=== PATIENT | female | born 1970 | race Caucasian/White ===

== ENCOUNTER 2016-10-31 05:36 | Observation (INO) | payer OTHER ==
[~2016-10-31] VITALS: Ht 167.6 cm; Wt 72.6 kg
--- NOTE | ~2016-10-31 | OR ---
ADMIT: 10/31/2016 RM/LOC: [facility] MR#: [id number] [address] [address] [facility] N[facility] [address] [place] [address] Operative/Delivery Room Report SEX: F AGE: 46 : 1970 SURGERY DATE: 10/31/2016 SURGEON: Shani Tracy MD PROCEDURE: 1. Total laparoscopic hysterectomy with bilateral salpingectomy. 2. Cystoscopy. TRAIN OPERATIONS SUPERVISOR: Feli Gardner MD. PREOPERATIVE DIAGNOSES: 1. Menorrhagia. 2. Uterine leiomyoma. POSTOPERATIVE DIAGNOSES: 1. Menorrhagia. 2. Uterine leiomyoma. FINDINGS: 1. Markedly enlarged uterus with multiple leiomyoma. 2. Normal-appearing tubes and right ovary. 3. Left ovarian cyst drained of clear fluid. ESTIMATED BLOOD LOSS: 100 mL. ANESTHESIA: General. COMPLICATIONS: None. INDICATIONS FOR PROCEDURE: The patient is a 46-year-old female who had had a history of increasing problems with menorrhagia. The patient had an ultrasound performed, which showed uterine leiomyoma with an exophytic mass measuring up to 6 cm. The patient initially started oral contraceptive pills for control of menorrhagia, but continued to have irregular bleeding and desired definitive surgical management. The risks, benefits, and alternatives of surgery discussed, and the patient desired total laparoscopic hysterectomy with bilateral salpingectomy with possible oophorectomy. DESCRIPTION OF PROCEDURE: The patient was taken to the operating room where general anesthesia was obtained without difficulty. The patient was placed in the dorsal lithotomy position in [facility], and prepped and draped in the usual sterile fashion. A catheter was placed prior to surgery. Attention was first turned to the patient's vagina. The cervix was visualized with the breakaway speculum. The anterior lip of the cervix was grasped with a single- tooth tenaculum. The uterus was sounded to 12 cm. The large VCare device was then placed into the uterus and the cup was tightened down around the cervix without difficulty. All other instruments were then removed from the patient's vagina. ADMIT: 10/31/2016 RM/LOC: [facility] MR#: [id number] [address] [address] NIVIA WARE [address] [place] [address] Operative/Delivery Room Report SEX: F AGE: 46 : 1970 Gloves were changed and attention was turned to the patient's abdomen. A 5-mm infraumbilical incision was made with a scalpel after local infiltration of 0.25% Marcaine. The Veress needle was inserted into this incision and the patient's abdomen was insufflated to a patient pressure of 15 mmHg using CO2 gas. Good gas flow and low patient opening pressure were noted with insufflation. When the abdomen was insufflated, 5 mm trocar was then placed into this incision. Two additional ports were placed in the left and right lower quadrants. An 11 mm port was placed in the right lower quadrant and a 5 mm port in the left lower quadrant. At this point, inspection of the pelvis revealed a markedly enlarged uterus with several leiomyoma including an exophytic subserosal leiomyoma approximately 6 cm in diameter and another at the fundus of the uterus. The patient's right tube and ovary appeared normal. The left tube appeared normal and the left ovary appeared to have a cyst. On manipulation of the ovary, the cyst did rupture and clear fluid was noted. The cyst was then completely drained. The ureters bilaterally were identified. At this point, attention was turned to the patient's right side. The right tube was identified and followed out to the fimbriated end. The mesosalpinx was sequentially coagulated and transected using the Thunderbeat device. The round ligament was then reached and was coagulated and transected using the Thunderbeat as well. The anterior leaf of the broad ligament was then taken down using the Thunderbeat as well as the posterior leaf of the broad ligament. At this point, the uterine vessels were able to be identified and were coagulated several times and then transected. Attention was then turned to the patient's left side, and this side was more difficult for visualization due to position of the leiomyoma. The left tube was able to be identified and followed out to the fimbriated end. The left mesosalpinx was sequentially coagulated and transected using the Thunderbeat device. The left round ligament was then coagulated and transected as well. The anterior leaf of the broad ligament was taken down meeting the previous incision in the midline. The posterior leaf of the broad ligament was then taken down as well. The uterine vessels on this side were then able to be identified by skeletonizing the vessels and were coagulated and transected. At this point, the tissue overlying the VCare cup was thinned out using the Thunderbeat device. The vaginal mucosa was then dissected away from the cervix using the Thunderbeat to cut around the VCare in a circumferential fashion. At this point, the uterus was able to be completely transected from the vagina. The cervix was able to be delivered through the vagina and the remainder of the uterus and tubes were delivered through the vagina as well without difficulty. At this point, gloves were changed and attention was then again turned to the patient's abdomen. The vaginal cuff was closed in a series of interrupted stitches of 0 Vicryl using the Endo Stitch device. Good hemostasis of the vaginal cuff was then noted. All other areas of pelvis ADMIT: 10/31/2016 RM/LOC: [facility] MR#: [id number] [address] [place] [id number] NIVIA WARE [address] [place] [address] Operative/Delivery Room Report SEX: F AGE: 46 : 1970 appeared hemostatic. The appendix appeared normal as did the liver. After noting excellent hemostasis, the patient's 11 mm fascial incision was closed using the Alok-Grant device with a stitch of 0 Vicryl to close the fascia. The CO2 gas was removed from the patient's abdomen and the other ports were removed under direct visualization. The skin incisions were closed with subcuticular 3-0 Vicryl. At this point, the patient's catheter was removed and cystoscopy was performed. Cystoscopy revealed a normal-appearing bladder without evidence of lesions. Bilateral ureteral jets were noted as well. At this point, all instruments removed from the patient's vagina. The Aguilar was left out as well. The patient tolerated the procedure well. All sponge and needle counts were correct. The patient went to recovery in stable condition. Shani Tracy MD/ shilo JOB #: [id number] CC: Shani Tracy, Attending Physician Blanka Wadsworth, Family Physician
[2016-11-02] MEDS ORDERED: ROSUVASTATIN CA20 MG PO (10:48)
[2016-11-02] MEDS ORDERED: ZESTRIL DPS5 MG PO (10:48)
[2016-11-02] MEDS ORDERED: AMBIEN DPS5 MG PO (10:49)
[2016-11-02] MEDS ORDERED: ZYRTEC DPS10 MG PO (10:49)
[2016-11-02] MEDS ORDERED: LASIX DPS20 MG PO (10:49)
[2016-11-02] MEDS ORDERED: NASACORT16.9 ML NS (10:50)
[2016-11-02] MEDS ORDERED: VIRTUSSIN AC L473 ML PO (10:50)
[2016-11-02] MEDS ORDERED: SINUS & ALLERG1 EACH PO (10:51)
[2016-11-02] MEDS ORDERED: GUAIFENESIN400 MG PO (10:51)
[2016-11-02] MEDS ORDERED: AMOXICILLIN875 MG PO (10:52)
[2016-11-02] MEDS ORDERED: EXCEDRIN DPS1 TAB PO (10:52)
[2016-11-02] MEDS ORDERED: MYLICON DPS80 MG PO (10:53)
[2016-11-02] MEDS ORDERED: PERCOCET 5 DPS1 TAB PO (10:53)
[2016-11-02] MEDS ORDERED: MOTRIN-DPS800 MG PO (10:53)
[2016-11-02] MEDS ORDERED: MACROBID100 MG PO (10:53)
--- NOTE | 2016-12-04 09:14 | HP ---
ADMIT: 10/31/2016 RM/LOC: [facility] MR#: [id number] [address] [address] NIVIA WARE [address] [place] [address] Pre-OP History and Physical SEX: F AGE: 46 : 1970 DATE OF SERVICE: HISTORY OF PRESENT ILLNESS: The patient is a 46-year-old female, who had originally presented in January of 2016 with complaints of very heavy menstrual bleeding. The patient had been seen by Blanka Wadsworth for this and had noted over the last several years that her periods had gotten heavier and heavier. The patient had an ultrasound performed, which showed the uterus to be mildly enlarged, measuring 11.1 x 6.6 x 7.2 cm with an exophytic mass on the left measuring up to 6 cm. Ovaries appeared normal at that time. Due to this, the patient was initially started on Lo Loestrin control pills for control of menstrual bleeding. The patient did have some improvement in her heavy bleeding. However, she continued to have irregular bleeding as well as mood swings and headaches and after approximately 6 months, desired to proceed with definitive surgical management. After reviewing risks and benefits, the patient desires total laparoscopic hysterectomy with bilateral salpingectomy. She does desire to have her ovaries left in place. PAST MEDICAL HISTORY: 1. Hypertension. 2. Seasonal allergies. 3. Hypercholesterolemia. PAST SURGICAL HISTORY: Breast augmentation in 2005. CURRENT MEDICATIONS: Lo Loestrin tablets daily, Zyrtec 10 mg daily, Crestor 20 mg daily, lisinopril 5 mg daily, cetirizine 10 mg daily, furosemide 20 mg as needed, and zolpidem 5 mg daily. ALLERGIES: BIAXIN WHICH CAUSES NAUSEA, HYDROCHLOROTHIAZIDE WHICH CAUSES ITCHING AND RASH. FAMILY HISTORY: Unknown. The patient is adopted. SOCIAL HISTORY: The patient is . She denies any alcohol, tobacco, or drug use. PHYSICAL EXAMINATION: VITAL SIGNS: On admission, weight 164 pounds. Height 67 inches, BMI 25.1. Blood pressure 130/82. GENERAL: The patient is alert and oriented, in no acute distress. HEART: Regular rate and rhythm without murmurs, gallops, or rubs. LUNGS: Clear to auscultation bilaterally. ABDOMEN: Soft, nontender, and nondistended. Positive bowel sounds. EXTREMITIES: No edema. No calf tenderness. IMAGING: Ultrasound data as noted above. ADMIT: 10/31/2016 RM/LOC: [facility] MR#: [id number] [address] [id number] [place] [address] Pre-OP History and Physical SEX: F AGE: 46 : 1970 ASSESSMENT: 1. A 46-year-old female with menorrhagia with regular cycle. 2. Uterine leiomyoma. PLAN: We will plan to proceed with total laparoscopic hysterectomy and bilateral salpingectomy due to menorrhagia and uterine leiomyoma. The patient has attempted control pills for over 6 months, but continues to have breakthrough bleeding as well as headaches and mood changes and now desires definitive surgical management. The risks, benefits, and alternatives of surgery including, but not limited to the risk of bleeding, possibly requiring blood transfusion, the risk of infection, and the risk of injury to bowel or bladder have been discussed with the patient, and she wished to proceed. Shani Tracy MD/ shilo JOB #: [id number] CC: Shani Tracy, Attending Physician Blanka Wadsworth, Family Physician
== END 2016-11-01 18:00 | disposition home or self-care (01) ==
LOC: WOR 05:36 → 6PED 09:51
PROVIDERS: ADMIT Obstetrics & Gynecology
PROC: 0UTC4ZZ Resection of Cervix, Percutaneous Endoscopic Approach (ICD-10-PCS; principal; 2016-10-31)
PROC: 0UB74ZZ Excision of Bilateral Fallopian Tubes, Percutaneous Endoscopic Approach (ICD-10-PCS; principal; 2016-10-31)
PROC: 0UT94ZZ Resection of Uterus, Percutaneous Endoscopic Approach (ICD-10-PCS; principal; 2016-10-31)
DX: D25.2 Subserosal leiomyoma of uterus (principal); D25.1 Intramural leiomyoma of uterus; D25.0 Submucous leiomyoma of uterus; N85.8 Other specified noninflammatory disorders of uterus; N72 Inflammatory disease of cervix uteri; I10 Essential (primary) hypertension; Z79.899 Other long term (current) drug therapy; Z98.890 Other specified postprocedural states